=== PATIENT | female | born 1970 | race Caucasian/White ===

== ENCOUNTER 2017-10-28 18:34 | Emergency (ER) | payer OTHER ==
[~2017-10-28] VITALS: Ht 172.7 cm; Wt 68.0 kg
[2017-10-28 20:11] VITALS: BP 133/87
== END 2017-10-28 20:11 | disposition home or self-care (01) ==
LOC: ED 18:34
DX: Z76.0 Encounter for issue of repeat prescription (principal); F43.0 Acute stress reaction; Z88.0 Allergy status to penicillin; Z88.1 Allergy status to other antibiotic agents; Z88.6 Allergy status to analgesic agent